=== PATIENT | male | born 1990 | race Caucasian/White ===

== ENCOUNTER 2018-07-06 13:07 | Emergency (ER) | payer MEDICAID, OTHER | END 2018-07-06 16:40 | disposition home or self-care (01) | LOC: FTE 13:07 | DX: S90.121A Contusion of right lesser toe(s) without damage to nail, initial encounter (principal); W22.03XA Walked into furniture, initial encounter; Y92.9 Unspecified place or not applicable | CPT/HCPCS: 73660; 99284-25 ==